=== PATIENT | male | born 1995 | race Caucasian/White ===

== ENCOUNTER 2018-10-02 03:11 | Emergency (ER) | payer MEDICAID ==
[~2018-10-02] VITALS: Ht 180.3 cm; Wt 72.6 kg
[2018-10-02 03:11] VITALS: BP 124/71
[~2018-10-02 03:11] MED LIST: [UNRECOGNIZED DRUG - REMARK]
[2018-10-02 04:10] VITALS: BP 124/71
== END 2018-10-02 04:10 ==
LOC: MED 03:11
DX: Z02.89 Encounter for other administrative examinations (principal); R03.0 Elevated blood-pressure reading, without diagnosis of hypertension
CPT/HCPCS: 99283